=== PATIENT | female | born 1985 | race Asian ===

== ENCOUNTER 2020-05-20 23:43 | Emergency (ER) | payer OTHER ==
[~2020-05-20] VITALS: Ht 162.6 cm; Wt 65.8 kg
--- NOTE | 2020-05-20 23:56 | NUR ---
BIBSELF C/O SOB X1HR [employer]. PT HAS HISTORY OF ASTHMA BUT [place]ISITING [place], DID NOT BRING INHALER. DENIES COUGH. PT AAOX4. AMBULATORY WITH STEADY GAIT. 100% ON ROOM AIR, VITAL SIGNS STABLE. RESPIRATIONS EVEN AND UNLABORED. SKIN WARM AND INTACT. NO ACUTE DISTRESS NOTED AT THIS TIME. WILL CONTINUE TO MONITOR
--- NOTE | 2020-05-20 23:58 | NUR ---
RADIOLOGY AT BEDSIDE FOR XRAY
[2020-05-21] MEDS ORDERED: ALBUTEROL FS 2.5 MG/3 ML VIAL.NEB NEB ONE
[2020-05-21] MEDS ORDERED: IPRATROPIUM NEB FS 0.5 MG/2.5 ML AMPUL.NEB NEB ONE
[2020-05-21] MEDS ORDERED: IPRATROPIUM NEB FS 0.5 MG/2.5 ML AMPUL.NEB ONE (00:07)
[2020-05-21] MEDS ORDERED: ALBUTEROL FS 2.5 MG/3 ML VIAL.NEB ONE (00:07)
--- NOTE | 2020-05-21 00:29 | NUR ---
Patient discharged to home in stable condition. Written and verbal after care instructions given. Patient verbalizes understanding of instruction.Pt ambulatory with a steady gait
[2020-05-21 00:30] VITALS: BP 137/88
== END 2020-05-21 00:31 | disposition home or self-care (01) ==
LOC: ER 23:45
DX: J45.909 Unspecified asthma, uncomplicated (principal)
CPT/HCPCS: 71045-TC